=== PATIENT | female | born 1955 | race Caucasian/White ===

== ENCOUNTER 2018-05-20 11:11 | Outpatient (REF) | payer BC, SELFPAY ==
[2018-05-20 23:00] LABS: ESR 16 MM/HR (0-30)
[2018-05-20 23:09] LABS: ALT 25 U/L (12-78); AST 18 U/L (15-37); Albumin 3.6 g/dL (3.4-5.0); Alkaline Phosphatase 82 U/L (46-116); Anion Gap 6.1 mmol/L (3-11); BUN 11 mg/dL (7-18); Bilirubin, Total 0.3 mg/dL (0.2-1.0); CO2 27.9 mmol/L (21.0-32.0); CREATININE 0.86 mg/dL (0.55-1.02); Calcium 8.6 mg/dL (8.5-10.1); Chloride 105 mmol/L (98-107); Cholesterol 274 mg/dL (50-200); Glucose 97 mg/dL (70-100); HDL Cholesterol 40 mg/dL (40-60); LDL CHOLESTEROL 208 mg/dL (<100); Potassium 4.5 mmol/L (3.5-5.1); Sodium 139 mmol/L (136-145); TSH (W/Ref FT4) 1.71 uIU/mL (0.358-3.74); Total Protein 6.7 g/dL (6.4-8.2); Triglyceride 135 mg/dL (30-150); Vitamin B12 193 pg/mL (193-986)
== END 2018-05-20 11:31 ==
LOC: NCHCN 11:11
PROVIDERS: PCP Family Medicine; Visit Provider Family Medicine
DX: Z00.00 Encounter for general adult medical examination without abnormal findings (principal); G60.9 Hereditary and idiopathic neuropathy, unspecified; E66.9 Obesity, unspecified
CPT/HCPCS: 80053; 80061; 83721; 85652; 82607; 84443

== ENCOUNTER 2019-05-04 18:40 | Outpatient (REF) | payer BC, SELFPAY | END 2019-05-04 19:00 | LOC: NCHCN 18:40 | PROVIDERS: PCP Family Medicine; Visit Provider Nurse Practitioner Family | DX: R50.9 Fever, unspecified (principal) | CPT/HCPCS: 87070 ==

== ENCOUNTER 2020-07-02 09:31 | Outpatient (REF) | payer BC, SELFPAY ==
[2020-07-02 21:29] LABS: ALT 39 U/L (14-59); AST 20 U/L (15-37); Albumin 3.6 g/dL (3.4-5.0); Alkaline Phosphatase 79 U/L (46-116); Anion Gap 5.8 mmol/L (3-11); BUN 18 mg/dL (7-18); Bilirubin, Total 0.3 mg/dL (0.2-1.0); CO2 31.2 mmol/L (21.0-32.0); CREATININE 0.82 mg/dL (0.55-1.02); Calcium 8.9 mg/dL (8.5-10.1); Calculated LDL 224 mg/dL (<100); Chloride 104 mmol/L (98-107); Cholesterol 296 mg/dL (<200); Glucose 98 mg/dL (74-106); HDL Cholesterol 42 mg/dL (40-60); Potassium 4.3 mmol/L (3.5-5.1); Sodium 141 mmol/L (136-145); Total Protein 6.8 g/dL (6.4-8.2); Triglyceride 151 mg/dL (<150)
== END 2020-07-02 09:51 ==
LOC: NCHCN 09:31
PROVIDERS: PCP Family Medicine; Visit Provider Nurse Practitioner Family
DX: Z00.00 Encounter for general adult medical examination without abnormal findings (principal); E66.9 Obesity, unspecified
CPT/HCPCS: 80053; 80061

== ENCOUNTER 2021-02-08 14:04 | Outpatient (REF) | payer BC, SELFPAY ==
[2021-02-08 21:39] LABS: ALT 31 U/L (14-59); AST 21 U/L (15-37); Albumin 3.7 g/dL (3.4-5.0); Alkaline Phosphatase 90 U/L (46-116); Anion Gap 9.2 mmol/L (3-11); BUN 12 mg/dL (7-18); Bilirubin, Total 0.2 mg/dL (0.2-1.0); CO2 27.8 mmol/L (21.0-32.0); CREATININE 0.8 mg/dL (0.55-1.02); Calcium 8.9 mg/dL (8.5-10.1); Calculated LDL 225 mg/dL (<100); Chloride 106 mmol/L (98-107); Cholesterol 289 mg/dL (<200); Glucose 90 mg/dL (74-106); HDL Cholesterol 41 mg/dL (40-60); Potassium 4.4 mmol/L (3.5-5.1); Sodium 143 mmol/L (136-145); Total Protein 6.9 g/dL (6.4-8.2); Triglyceride 116 mg/dL (<150); Vitamin B12 605 pg/mL (193-986)
[2021-02-08 21:42] LABS: Hemoglobin A1C 5.8 % (<5.7)
[2021-02-11 04:53] LABS: Vitamin D 25 Total 78.4 ng/mL (30-100)
== END 2021-02-08 14:05 | disposition home or self-care (01) ==
LOC: LBN 14:04
PROVIDERS: PCP Family Medicine; Visit Provider Family Medicine
DX: Z00.00 Encounter for general adult medical examination without abnormal findings (principal); E55.9 Vitamin D deficiency, unspecified; E53.8 Deficiency of other specified B group vitamins; R73.03 Prediabetes; E66.9 Obesity, unspecified
CPT/HCPCS: 80053; 80061; 82306; 82607; 83036

== ENCOUNTER 2021-02-08 14:10 | Outpatient (REF) | payer BC, SELFPAY ==
--- NOTE | 2021-02-08 13:45 | PAPFT_PTH ---
PATIENT: Chinyere Fontana LOC: [facility]#:[id number] AGE/SX: 66/F ROOM: RE02/08/[address]: Sol Pruett : 1955 BED: DIS: 02/08/2021 SPEC #: [id number] RECD: 02/12/21 13:03 STATUS: JOSE ANTONIO REAlecia #: [id number] KELLY: 02/08/21 13:[address]: Sol Pruett DEPT: [facility] Cytology RECD BY: Chioma Domingo Tissues: 1 - CX/ENDOCX FOR PAP SMEARS Procedures: PAP THIN PREP/[facility] Screening HPV DNA PROBE Comments: [id number]
== END 2021-02-08 14:11 | disposition home or self-care (01) ==
LOC: NCHCN 14:10
PROVIDERS: PCP Family Medicine; Visit Provider Family Medicine
DX: Z00.00 Encounter for general adult medical examination without abnormal findings (principal); Z12.4 Encounter for screening for malignant neoplasm of cervix; Z11.51 Encounter for screening for human papillomavirus (HPV)
CPT/HCPCS: 88142; 87624

== ENCOUNTER 2022-02-24 13:49 | Outpatient (REF) | payer MEDICARE, SELFPAY ==
[2022-02-24 16:20] LABS: Hemoglobin A1C 5.7 % (<5.7)
[2022-02-24 16:41] LABS: ALT 25 U/L (14-59); AST 18 U/L (15-37); Alkaline Phosphatase 100 U/L (46-116); BUN 12 mg/dL (7-18); Bilirubin, Total 0.2 mg/dL (0.2-1.0); CREATININE 0.9 mg/dL (0.55-1.02); Calcium 9.3 mg/dL (8.5-10.1); Calculated LDL 243 mg/dL (<100); Chloride 105 mmol/L (98-107); Cholesterol 320 mg/dL (<200); Glucose 100 mg/dL (74-106); HDL Cholesterol 48 mg/dL (40-60); Potassium 4.3 mmol/L (3.5-5.1); Sodium 143 mmol/L (136-145); Total Protein 7.4 g/dL (6.4-8.2); Triglyceride 146 mg/dL (<150)
== END 2022-02-24 13:50 | disposition home or self-care (01) ==
LOC: NCHCN 13:49
PROVIDERS: PCP Family Medicine; Visit Provider Family Medicine
DX: E78.5 Hyperlipidemia, unspecified (principal); R73.03 Prediabetes; E66.9 Obesity, unspecified
CPT/HCPCS: 80053; 80061; 83036

== ENCOUNTER 2022-05-09 18:55 | Outpatient (REF) | payer MEDICARE, SELFPAY ==
[2022-05-09 17:01] LABS: TSH (W/Ref FT4) 2.03 uIU/mL (0.36-3.74)
== END 2022-05-09 18:56 | disposition home or self-care (01) ==
LOC: NCHCN 18:55
PROVIDERS: PCP Family Medicine; Visit Provider Family Medicine
DX: E78.5 Hyperlipidemia, unspecified (principal)
CPT/HCPCS: 84443

== ENCOUNTER 2022-07-16 17:43 | Outpatient (REF) | payer MEDICARE, SELFPAY ==
[2022-07-16 14:38] LABS: ALT 23 U/L (14-59); AST 21 U/L (15-37); Albumin 3.4 g/dL (3.4-5.0); Alkaline Phosphatase 87 U/L (46-116); Anion Gap 7.7 mmol/L (3-11); BUN 13 mg/dL (7-18); Bilirubin, Total 0.4 mg/dL (0.2-1.0); CO2 29.3 mmol/L (21.0-32.0); CREATININE 0.8 mg/dL (0.55-1.02); Calcium 8.7 mg/dL (8.5-10.1); Calculated LDL 105 mg/dL (<100); Chloride 107 mmol/L (98-107); Cholesterol 163 mg/dL (<200); Estimated GFR 79.71 (mL/min/1.73m2); Glucose 103 mg/dL (74-106); HDL Cholesterol 41 mg/dL (40-60); Potassium 4.1 mmol/L (3.5-5.1); Sodium 144 mmol/L (136-145); Triglyceride 85 mg/dL (<150)
== END 2022-07-16 17:44 | disposition home or self-care (01) ==
LOC: NCHCN 17:43
PROVIDERS: PCP Family Medicine; Visit Provider Family Medicine
DX: E78.5 Hyperlipidemia, unspecified (principal)
CPT/HCPCS: 80053; 80061

== ENCOUNTER 2023-05-05 09:19 | Outpatient (REF) | payer MEDICARE, SELFPAY ==
[2023-05-05 14:26] LABS: ALT 24 U/L (14-59); AST 17 U/L (15-37); Albumin 3.3 g/dL (3.4-5.0); Alkaline Phosphatase 96 U/L (46-116); Anion Gap 5.7 mmol/L (3-11); BUN 16 mg/dL (7-18); Bilirubin, Total 0.4 mg/dL (0.2-1.0); CO2 29.3 mmol/L (21.0-32.0); CREATININE 0.9 mg/dL (0.55-1.02); Calcium 8.9 mg/dL (8.5-10.1); Calculated LDL 102 mg/dL (<100); Chloride 103 mmol/L (98-107); Cholesterol 163 mg/dL (<200); Estimated GFR 68.77 (mL/min/1.73m2); Glucose 99 mg/dL (74-106); HDL Cholesterol 43 mg/dL (40-60); Potassium 4.2 mmol/L (3.5-5.1); Sodium 138 mmol/L (136-145); Total Protein 6.9 g/dL (6.4-8.2); Triglyceride 94 mg/dL (<150)
[2023-05-05 14:52] LABS: Hemoglobin A1C 5.9 % (<5.7)
== END 2023-05-05 09:20 | disposition home or self-care (01) ==
LOC: NCHCN 09:19
PROVIDERS: PCP Family Medicine; Visit Provider Family Medicine
DX: R73.03 Prediabetes (principal); E78.5 Hyperlipidemia, unspecified; E66.9 Obesity, unspecified
CPT/HCPCS: 80053; 80061; 83036

== ENCOUNTER 2024-05-18 14:46 | Outpatient (REF) | payer MEDICARE, SELFPAY ==
[2024-05-18 15:06] LABS: Hemoglobin A1C 5.9 % (<5.7)
[2024-05-18 15:17] LABS: ALT 31 U/L (14-59); AST 26 U/L (15-37); Albumin 3.6 g/dL (3.4-5.0); Alkaline Phosphatase 102 U/L (46-116); Anion Gap 8.4 mmol/L (3-11); BUN 12 mg/dL (7-18); Bilirubin, Total 0.46 mg/dL (0.2-1.0); CO2 28.6 mmol/L (21.0-32.0); CREATININE 0.9 mg/dL (0.55-1.02); Calcium 9.1 mg/dL (8.5-10.1); Calculated LDL 96 mg/dL (<100); Chloride 105 mmol/L (98-107); Cholesterol 172 mg/dL (<200); Estimated GFR 68.35 (mL/min/1.73m2); Glucose 96 mg/dL (74-106); HDL Cholesterol 43 mg/dL (40-60); Potassium 4.2 mmol/L (3.5-5.1); Sodium 142 mmol/L (136-145); Total Protein 7.3 g/dL (6.4-8.2); Triglyceride 169 mg/dL (<150)
== END 2024-05-18 14:47 | disposition home or self-care (01) ==
LOC: NCHCN 14:46
PROVIDERS: PCP Family Medicine; Visit Provider Family Medicine
DX: E78.5 Hyperlipidemia, unspecified (principal); R73.03 Prediabetes
CPT/HCPCS: 80053; 80061; 83036